=== PATIENT | female | born 1970 | race African-American/Black ===

== ENCOUNTER 2016-05-14 07:46 | Emergency (ER) | payer OTHER ==
[~2016-05-14] VITALS: Ht 167.6 cm; Wt 81.2 kg
[2016-05-14 07:54] VITALS: BP 130/89
[2016-05-14] MEDS ORDERED: PRED20TA PO (08:09)
--- NOTE | 2016-05-14 08:09 | PHYS DOC ---
Past Medical History Past Medical History: No Pertinent History Past Surgical History: , Hysterectomy Alcohol Use: None Drug Use: None Adult General Chief Complaint Chief Complaint: SKIN RASH/ABSCESS [facility] HPI Patient is a 46 year old female presents to the emergency department with a history of two hives on the left side of her neck. Patient states that she has had other episodes of hives on her body that have gone away. She states that the areas go away and symptoms have a scab on the sites. She is concerned that she feels that these may be bed bugs. Patient states that her house is very clean. She states that she does not notice these welts until she comes to work. Patient states that they burn and itch. She denies any drainage coming from the sites. She denies any new clothing new soaps or laundry detergents. 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 Patient denies any shortness of air difficulty breathing. She has not taken any medications to help with the welts with the itching of the discomfort. Review of Systems Review of Systems Constitutional: Denies fever or chills [] Eyes: Denies change in visual acuity, redness, or eye pain [] HENT: Denies nasal congestion or sore throat [] Respiratory: Denies cough or shortness of breath [] Cardiovascular: No additional information not addressed in HPI [] GI: Denies abdominal pain, nausea, vomiting, bloody stools or diarrhea [] : Denies dysuria or hematuria [] Musculoskeletal: Denies back pain or joint pain [] Integument: rash on the left side of neck denies skin lesions [] Neurologic: Denies headache, focal weakness or sensory changes [] Allergies Allergies Allergies Coded Allergies Type Severity Reaction Last Updated Verified No Known Drug Allergies 06/02/14 No Physical Exam Physical Exam Constitutional: Well developed, well nourished, no acute distress, non-toxic appearance. [] HENT: Normocephalic, atraumatic, bilateral external ears normal, oropharynx moist, no oral exudates, nose normal. [] Eyes: PERRLA, EOMI, conjunctiva normal, no discharge. [] Neck: Normal range of motion, no tenderness, supple, no stridor. [] Cardiovascular:Heart rate regular rhythm, no murmur [] Lungs & Thorax: Bilateral breath sounds clear to auscultation [] Skin: Warm, dry, no erythema. Patient with 2 raised areas that appears to be hives noted on the left side of the neck no drainage or discharge noted from the site. Site does not appear to be warm it just appears to be red. Back: No tenderness Extremities: No tenderness, no cyanosis, no clubbing, ROM intact, no edema. [] Neurologic: Alert and oriented X 3, normal motor function, normal sensory function, no focal deficits noted. [] Psychologic: Affect normal, judgement normal, mood normal. [] Current Patient Data Vital Signs Vital Signs Date Time Temp Pulse Resp B/P Pulse Ox O2 Delivery O2 Flow Rate FiO2 05/14/16 07:54 98.1 85 18 96 Room Air 98.1 EKG EKG [] Radiology/Procedures Radiology/Procedures [] Course & Med Decision Making Course & Med Decision Making Pertinent Labs and Imaging studies reviewed. (See chart for details) [] Dragon Disclaimer Dragon Disclaimer This electronic medical record was generated, in whole or in part, using a voice recognition dictation system. Departure Departure Impression: Primary Impression: Contact dermatitis Disposition: HOME, SELF-CARE Condition: STABLE Referrals: NO PCP (PCP) Patient Instructions: Contact Dermatitis, [id number] Additional Instructions: Activity as tolerated Benadryl 25 mg every 6 hours as needed for itching, and irritation. This medication may cause drowsiness do not take if you need to be alert and oriented Medication as prescribed Pepcid 20 mg daily for the next 7 days Keep the areas cool and dry Aveeno baths may also help soothe the skin Followup with your primary care provider in 3-5 days Return to emergency department as needed for signs and symptoms that become worse. Scripts Prednisone 20 Mg [id number] Mg PO DAILY #14 TAB Prov:RUBI BALES NP 05/14/16 RUBI BALES NP May 14, 2016 08:09
[2016-05-14] MEDS ORDERED: PREDNISONE 20 MG TABLET PO ONE (08:15)
== END 2016-05-14 08:16 | disposition home or self-care (01) ==
LOC: ER 07:46
DX: L25.9 Unspecified contact dermatitis, unspecified cause (principal)
CPT/HCPCS: 99283; J7512

== ENCOUNTER 2016-07-26 03:07 | Emergency (ER) | payer OTHER ==
[~2016-07-26] VITALS: Ht 167.6 cm; Wt 74.8 kg
[~2016-07-26 03:07] MED LIST: PRED20TA PO
[2016-07-26 03:21] VITALS: BP 147/103
--- NOTE | 2016-07-26 03:30 | PHYS DOC ---
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 She states the pain radiates from the right posterior portion of her neck across her head and she felt significantly lightheaded and dizzy as well. Upon my initial assessment, the patient is in no acute distress complaining of significant right-sided neck pain and difficulty with rotation of the neck secondary to pain. She denies any numbness or tingling in her extremities. She denies any into her neck pain. She denies any chest pain or shortness of breath. Her pain is all primarily localized to the right side of her neck along the cervical and trapezius area. Review of Systems Review of Systems Constitutional: Denies fever or chills [] Eyes: Denies change in visual acuity, redness, or eye pain [] HENT: Denies nasal congestion or sore throat [] Respiratory: Denies cough or shortness of breath [] Cardiovascular: No additional information not addressed in HPI [] GI: Denies abdominal pain, nausea, vomiting, bloody stools or diarrhea [] : Denies dysuria or hematuria [] Musculoskeletal: Denies back pain or joint pain [] Integument: Denies rash or skin lesions [] Neurologic: Denies headache, focal weakness or sensory changes [] Endocrine: Denies polyuria or polydipsia [] Current Medications Current Medications Current Medications Medications (Trade) Dose Ordered Sig/Luis Start Time Stop Time Status Last Admin Dose Admin Ketorolac Tromethamine (Toradol Im) 60 mg STK-MED ONCE 07/26/16 03:35 07/26/16 03:36 DC Orphenadrine Citrate (Norflex) 60 mg STK-MED ONCE 07/26/16 03:35 07/26/16 03:36 DC Allergies Allergies Allergies Coded Allergies Type Severity Reaction Last Updated Verified No Known Drug Allergies 07/26/16 No Physical Exam Physical Exam Constitutional: Well developed, well nourished, no acute distress, non-toxic appearance. [] HENT: Normocephalic, atraumatic, bilateral external ears normal, oropharynx moist, no oral exudates, nose normal. [] Eyes: PERRLA, EOMI, conjunctiva normal, no discharge. [] Neck: Decreased ROM in the neck secondary to pain, significant right sided paracervical and trapezius pain to palpation, no palpable deformity, supple, no stridor. [] Cardiovascular:Heart rate regular rhythm, no murmur [] Lungs & Thorax: Bilateral breath sounds clear to auscultation [] Abdomen: Bowel sounds normal, soft, no tenderness, no masses, no pulsatile masses. [] Skin: Warm, dry, no erythema, no rash. [] Back: No tenderness, no CVA tenderness. [] Extremities: No tenderness, no cyanosis, no clubbing, ROM intact, no edema. [] Neurologic: Alert and oriented X 3, normal motor function, normal sensory function, no focal deficits noted. [] Psychologic: Affect normal, judgement normal, mood normal. [] Current Patient Data Vital Signs Vital Signs Date Time Temp Pulse Resp B/P (MAP) Pulse Ox O2 Delivery O2 Flow Rate FiO2 07/26/16 03:21 98.1 96 20 96 Room Air 98.1 EKG EKG [] Radiology/Procedures Radiology/Procedures [] Course & Med Decision Making Course & Med Decision Making Pertinent Labs and Imaging studies reviewed. (See chart for details) This 46-year-old female who had a injury to the right side of her neck while she was in the process of lifting a patient will receive IM injections of Toradol and Norflex. Her symptoms seem likely related to cervical strain and she will need to be on light duty for the next several days and to avoid any strenuous activities. I counseled her that she is continue to use heat therapy and anti-inflammatories and muscle relaxants as needed for her symptoms. She is to follow closely with her primary care doctor in the next several days for symptom resolution and to return if her symptoms should worsen in any way. Upon my reassessment, after Toradol and Norflex injection the patient feels symptomatically improved. I'll be discharging her with a course of Motrin and Norflex and give her the next several days to relax and to avoid any strenuous activities. Patient is very agreeable with this plan and will be discharged without incident. Return precautions were provided and acknowledged by the patient. Dragon Disclaimer Dragon Disclaimer This electronic medical record was generated, in whole or in part, using a voice recognition dictation system. Departure Departure Impression: Primary Impression: Cervical strain, acute Disposition: 01 HOME, SELF-CARE Admitting Physician: Other Condition: IMPROVED Referrals: NO PCP (PCP) Patient Instructions: Cervical Sprain, [id number] Additional Instructions: Please follow up with your primary doctor in the next 2-3 days for your neck strain. Take your medications as prescribed. Return to the ER if you develop any worsening of your symptoms. Avoid any strenuous activities and use heat therapy to the affected area as needed. Scripts Ibuprofen (IBUPROFEN) 800 Mg Tablet 800 MG PO PRN Q6HRS Y for INFLAMMATION, #20 TAB Prov: SONG DE LA TORRE DO 07/26/16 Cyclobenzaprine Hcl (CYCLOBENZAPRINE HCL) 10 Mg Tablet 10 MG PO TID, #15 TAB Prov: SONG DE LA TORRE DO 07/26/16 SONG DE LA TORRE DO July 26, 2016 03:30
[2016-07-26] MEDS ORDERED: ORPHENADRINE CITRATE 60 MG/2 ML VIAL. ONE (03:35)
[2016-07-26] MEDS ORDERED: KETOROLAC TROMETHAMINE 60 MG/2 ML INJ. ONE (03:35)
[2016-07-26] MEDS ORDERED: CYCL10TA2 PO (03:59)
[2016-07-26] MEDS ORDERED: IBUP-1060 PO (03:59)
[2016-07-26] MEDS ORDERED: KETOROLAC TROMETHAMINE 60 MG/2 ML INJ. IM ONE (04:00)
[2016-07-26] MEDS ORDERED: ORPHENADRINE CITRATE 60 MG/2 ML VIAL. IM ONE (04:00)
== END 2016-07-26 04:34 | disposition home or self-care (01) ==
LOC: EDBD → ER 03:07 → MERGE 03:07 → ER 04:34
DX: S16.1XXA Strain of muscle, fascia and tendon at neck level, initial encounter (principal); W19.XXXA Unspecified fall, initial encounter; Y93.89 Activity, other specified; Y92.89 Other specified places as the place of occurrence of the external cause; Y99.0 Civilian activity done for income or pay
CPT/HCPCS: 96372; 99284; J1885; J2360

== ENCOUNTER → 2016-08-26 | Outpatient (CLI) | payer OTHER ==
[~2016-08-26] MED LIST changes: +CYCL10TA2 PO; +IBUP-1060 PO
--- NOTE | 2016-08-26 10:03 | RAD ---
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 Comparison: None Findings: There is motion degradation, some image sequences repeated. There is mild reversal of the lordotic curvature. Cervical cord caliber is within normal limits without obvious or expansile signal change, limited evaluation for subtle signal change due to motion. There is moderate degenerative disc disease C6-7, to lesser degree C4-5 and minimally C5-C6. Cervical vertebral body stature is preserved. There is negligible posterior subluxation C6 relative to C7. There is no significant abnormality of the cervical medullary junction. There is nonspecific prominence of the adenoids. Very mild endplate edema at C4-5 and C6-7 is likely reactive/degenerative in etiology. Incidental note is made of medial deviation of the right carotid artery neck in the neck into the retropharyngeal region. C2-C3: Neural foramina and spinal canal are adequate. C3-C4: Neural foramina and spinal canal are adequate. C4-C5: Neural foramina and spinal canal are adequate. C5-C6: Spinal canal and neural foramina are adequate. C6-C7: There is minimal disc osteophyte complex and bulge. Spinal canal is adequate. There is uncovertebral degenerative change. There is likely mild neural foramina compromise bilaterally somewhat greater on the left. C7-T1: Neural foramina and spinal canal are adequate. Impression: 1. There is degenerative disc disease greatest at C6-7 and C4-5. There is no significant cervical spinal stenosis. There is likely mild neural foramina compromise bilaterally at C6-7. There is nonspecific reversal of the lordotic curvature, minimal posterior subluxation C6 relative to C7. 2. Incidental note is made of medial deviation of the right carotid artery in the neck into the retropharyngeal region. Electronically signed by: Efra Young MD (08/26/2016 10:00 AM)
== END | disposition home or self-care (01) ==
LOC: MRI 12:05
PROVIDERS: ATTEND Family Medicine
DX: S16.1XXA Strain of muscle, fascia and tendon at neck level, initial encounter (principal); M50.323 Other cervical disc degeneration at C6-C7 level; M50.321 Other cervical disc degeneration at C4-C5 level; X58.XXXA Exposure to other specified factors, initial encounter; Y93.89 Activity, other specified; Y92.89 Other specified places as the place of occurrence of the external cause; Y99.8 Other external cause status
CPT/HCPCS: 72141

== ENCOUNTER 2017-04-22 07:13 | Emergency (ER) | payer SELFPAY, OTHER | END 2017-04-22 07:58 | disposition home or self-care (01) | LOC: ER 07:13 | DX: L03.113 Cellulitis of right upper limb (principal) | CPT/HCPCS: 99283 ==

== ENCOUNTER → 2017-07-25 | Outpatient (CLI) | payer OTHER | END | disposition home or self-care (01) | LOC: MAMMO 08:17 | DX: Z12.31 Encounter for screening mammogram for malignant neoplasm of breast (principal) | CPT/HCPCS: 77063; 77067 ==

== ENCOUNTER 2017-08-22 11:33 | Emergency (ER) | payer OTHER | END 2017-08-22 12:46 | disposition home or self-care (01) | LOC: ER 11:33 | DX: H10.33 Unspecified acute conjunctivitis, bilateral (principal); R03.0 Elevated blood-pressure reading, without diagnosis of hypertension | CPT/HCPCS: 99283 ==

== ENCOUNTER 2018-05-25 14:00 | Emergency (ER) | payer SELFPAY ==
[~2018-05-25] VITALS: Ht 167.6 cm; Wt 99.8 kg
[~2018-05-25 14:00] MED LIST changes: +CEPH-264 PO; +HYDR25TA PO; +SULF1TAB24 PO; +TOBR5DRO6 OD
[2018-05-25 14:49] VITALS: BP 143/97
[2018-05-25] MEDS ORDERED: POLY10DR3 EACHEYE (16:03)
--- NOTE | 2018-05-25 16:04 | PHYS DOC ---
Past Medical History Past Medical History: No Pertinent History Past Surgical History: No Surgical History Alcohol Use: None Drug Use: None Adult General Chief Complaint Chief Complaint: EYE PROBLEMS HPI HPI Patient is a 48 year old female who presents with 4 days of left eye itching and discharge and now the right eye is beginning to become pink and itching with discharge. Review of Systems Review of Systems Constitutional: Denies fever or chills [] Eyes: Denies change in visual acuity, redness, or eye pain. Left and right eye itching and discharge. [] HENT: Denies nasal congestion or sore throat [] Respiratory: Denies cough or shortness of breath [] Cardiovascular: No additional information not addressed in HPI [] GI: Denies abdominal pain, nausea, vomiting, bloody stools or diarrhea [] : Denies dysuria or hematuria [] Musculoskeletal: Denies back pain or joint pain [] Integument: Denies rash or skin lesions [] Neurologic: Denies headache, focal weakness or sensory changes [] All other systems were reviewed and found to be within normal limits, except as documented in this note. Allergies Allergies Allergies Coded Allergies Type Severity Reaction Last Updated Verified No Known Drug Allergies 06/02/14 No Physical Exam Physical Exam Constitutional: Well developed, well nourished, no acute distress, non-toxic appearance. [] HENT: Normocephalic, atraumatic, bilateral external ears normal, oropharynx moist, no oral exudates, nose normal. Left right eye clear discharge and pink conjunctiva. [] Eyes: PERRLA, EOMI, conjunctiva normal, no discharge. [] Neck: Normal range of motion, no tenderness, supple, no stridor. [] Cardiovascular:Heart rate regular rhythm, no murmur [] Lungs & Thorax: Bilateral breath sounds clear to auscultation [] Abdomen: Bowel sounds normal, soft, no tenderness, no masses, no pulsatile masses. [] Skin: Warm, dry, no erythema, no rash. [] Back: No tenderness, no CVA tenderness. [] Extremities: No tenderness, no cyanosis, no clubbing, ROM intact, no edema. [] Neurologic: Alert and oriented X 3, normal motor function, normal sensory function, no focal deficits noted. [] Psychologic: Affect normal, judgement normal, mood normal. [] Current Patient Data Vital Signs Vital Signs Date Time Temp Pulse Resp B/P (MAP) Pulse Ox O2 Delivery O2 Flow Rate FiO2 05/25/18 14:49 97.9 89 18 143/97 (112) 99 Room Air 97.9 EKG EKG [] Radiology/Procedures Radiology/Procedures [] Course & Med Decision Making Course & Med Decision Making Patient is a 48 year old female who presents with 4 days of left eye itching and discharge and now the right eye is beginning to become pink and itching with discharge. Alert and oriented. Speaks in full clear sentences. Afebrile. Left and right I have pink conjunctivae a with clear discharge. There is no swelling around the eye. Patient denies any visual changes, headache, dizziness , pain of the eye. PERRLA. No extraocular movement pain. She is diagnosed with Spencer Vitas. Patient will be given antibiotic eyedrops and to follow-up with her primary care provider. Dragon Disclaimer Dragon Disclaimer This electronic medical record was generated, in whole or in part, using a voice recognition dictation system. Departure Departure Impression: Primary Impression: Bilateral conjunctivitis Disposition: HOME, SELF-CARE Condition: STABLE Referrals: SONIA ZULETA APRN (PCP) Patient Instructions: Bacterial Conjunctivitis Additional Instructions: Follow-up with primary care provider if needed. Scripts Polymyxin B Sulf/Trimethoprim (POLYMYXIN B-TMP EYE DROPS) 10 Ml Drops 1 DROP EACHEYE QID for 10 Days, #10 ML Prov: RUBI WAGNER APRN 05/25/18 Problem Qualifiers Primary Impression: Bilateral conjunctivitis Conjunctivitis type: unspecified Qualified Codes: H10.9 - Unspecified conjunctivitis RUBI WAGNER APRN May 25, 2018 16:04
== END 2018-05-25 16:14 | disposition home or self-care (01) ==
LOC: ER 14:00
DX: H10.89 Other conjunctivitis (principal)
CPT/HCPCS: 99283

== ENCOUNTER 2018-09-03 20:14 | Emergency (ER) | payer SELFPAY ==
[~2018-09-03] VITALS: Ht 167.6 cm; Wt 84.8 kg
[~2018-09-03 20:14] MED LIST changes: +POLY10DR3 EACHEYE
[2018-09-03 20:57] VITALS: BP 142/92
[2018-09-03] MEDS ORDERED: AMOX500C PO (21:41)
--- NOTE | 2018-09-03 21:44 | PHYS DOC ---
Past Medical History Past Medical History: No Pertinent History Past Surgical History: No Surgical History Alcohol Use: None Drug Use: None Adult General Chief Complaint Chief Complaint: INSECT BITE [facility] HPI Patient is a 48 year old female who presents with an insect bites to the right arm. Patient states this is been ongoing for a day and that she woke up with it. Areas itch rates her pain 0 out of 10. Review of Systems Review of Systems Constitutional: Denies fever or chills [] Eyes: Denies change in visual acuity, redness, or eye pain [] HENT: Denies nasal congestion or sore throat [] Respiratory: Denies cough or shortness of breath [] Cardiovascular: No additional information not addressed in HPI [] GI: Denies abdominal pain, nausea, vomiting, bloody stools or diarrhea [] : Denies dysuria or hematuria [] Musculoskeletal: Denies back pain or joint pain [] Integument: Reports insect bites to Right arm and right thigh. Neurologic: Denies headache, focal weakness or sensory changes [] Endocrine: Denies polyuria or polydipsia [] Complete systems were reviewed and found to be within normal limits, except as documented in this note. Allergies Allergies Allergies Coded Allergies Type Severity Reaction Last Updated Verified No Known Drug Allergies 06/02/14 No Physical Exam Physical Exam Constitutional: Well developed, well nourished, no acute distress, non-toxic appearance. [] HENT: Normocephalic, atraumatic, bilateral external ears normal, oropharynx moist, no oral exudates, nose normal. [] Eyes: PERRLA, EOMI, conjunctiva normal, no discharge. [] Neck: Normal range of motion, no tenderness, supple, no stridor. [] Cardiovascular:Heart rate regular rhythm, no murmur [] Lungs & Thorax: Bilateral breath sounds clear to auscultation [] Abdomen: Bowel sounds normal, soft, no tenderness, no masses, no pulsatile masses. [] Skin: Warm, dry, erythema to R forearm around 2 bites. Also has erythema to R thigh around bite. Back: No tenderness, no CVA tenderness. [] Extremities: No tenderness, no cyanosis, no clubbing, ROM intact, no edema. [] Neurologic: Alert and oriented X 3, normal motor function, normal sensory function, no focal deficits noted. [] Psychologic: Affect normal, judgement normal, mood normal. [] EKG EKG [] Radiology/Procedures Radiology/Procedures [] Course & Med Decision Making Course & Med Decision Making Pertinent Labs and Imaging studies reviewed. 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 Will have her take Benadryl to see if improves. If not will have her take antibiotic. Patient is agreeable to plan. Dragon Disclaimer Dragon Disclaimer This electronic medical record was generated, in whole or in part, using a voice recognition dictation system. Departure Departure Impression: Primary Impression: Insect bite Additional Impression: Papular urticaria Disposition: HOME, SELF-CARE Condition: STABLE Referrals: SONIA ZULETA APRN (PCP) Patient Instructions: Insect Bite, [id number] Additional Instructions: Thank you for visiting [facility]. We appreciate you trusting us with your care. If any additional problems come up don't hesitate to return to visit us. Please follow up with your primary care provider so they can plan additional care if needed and know about the problem that you had. If symptoms worsen come back to the Emergency Department. Any concerning symptoms that start such as chest pain, shortness of Air, weakness or numbness on one side of the body, running high fevers or any other concerning symptoms return to the ER. Please fill your medications at any pharmacy and follow the prescription instructions. 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 If it does not improve with Benadryl, please take antibiotic as prescribed. Scripts Amoxicillin (AMOXICILLIN) 500 Mg Capsule 1 CAP PO TID for 7 Days, #21 CAP Prov: GLENDA ACKERMAN APRN 09/03/18 Problem Qualifiers Primary Impression: Insect bite Encounter type: initial encounter Site of insect bite: unspecified site Qualified Codes: W57.XXXA - Bitten or stung by nonvenomous insect and other nonvenomous arthropods, initial encounter GLENDA ACKERMAN APRN Sep 03, 2018 21:44
== END 2018-09-03 21:50 | disposition home or self-care (01) ==
LOC: ER 20:14
DX: S40.861A Insect bite (nonvenomous) of right upper arm, initial encounter (principal); S70.361A Insect bite (nonvenomous), right thigh, initial encounter; L50.8 Other urticaria; W57.XXXA Bitten or stung by nonvenomous insect and other nonvenomous arthropods, initial encounter; Y93.89 Activity, other specified; Y92.89 Other specified places as the place of occurrence of the external cause; Y99.8 Other external cause status
CPT/HCPCS: 99283

== ENCOUNTER 2019-11-15 11:01 | Emergency (ER) | payer BC ==
[~2019-11-15] VITALS: Ht 167.6 cm; Wt 97.0 kg
[~2019-11-15 11:01] MED LIST changes: +AMOX500C PO
[2019-11-15 11:52] VITALS: BP 128/74
[2019-11-15] MEDS ORDERED: NAPROXEN 500 MG TABLET PO STA (12:07)
[2019-11-15] MEDS ORDERED: HYDROcodone/APAP 5/325MG 1 TAB TABLET PO ONE (12:30)
--- NOTE | 2019-11-15 12:30 | RAD ---
KNEE RIGHT 3V 11/15/2019 11:11 AM INDICATION: Status post fall downstairs COMPARISON: None available. TECHNIQUE: 3 views of the right knee are provided. FINDINGS/ IMPRESSION: No significant knee joint effusion . There is no acute fracture or dislocation. Joint spaces are maintained. Bone mineralization is within normal limits. Regional soft tissues are within normal limits. There is no soft tissue gas or osseous erosion. No radiopaque foreign body. Electronically signed by: Marely Riojas MD (11/15/2019 12:27 PM) [id number]
--- NOTE | 2019-11-15 13:09 | PHYS DOC ---
Past Medical History Past Medical History: No Pertinent History (JAIRO SAUNDERS APRN) Past Surgical History: Tubal ligation (JAIRO SAUNDERS APRN) Smoking Status: Never Smoker Alcohol Use: Rarely Drug Use: None (JAIRO SAUNDERS APRN) General Adult EDM: Chief Complaint: LOWEREXTREMITY INJURY HPI: HPI: Patient is a 49 year old female who presents the ED today complaining of mild intermittent right knee pain that began today after she fell down 4 steps twisting her knee. Patient describes the pain as sharp and constant. States the pain is worse on weightbearing. Denies anything specifically relieving her pain. Requesting MRI. (JAIRO SAUNDERS APRN) Review of Systems: Review of Systems: Constitutional: Denies fever or chills. [] Musculoskeletal: Reports right knee pain Integument: Denies rash. [] Neurologic: Denies headache, focal weakness or sensory changes. [] Psychiatric: Denies depression or anxiety. [] (JAIRO SAUNDERS APRN) Heart Score: Risk Factors: Risk Factors: DM, Current or recent (<one month) smoker, HTN, HLP, family history of CAD, obesity. Risk Scores: Score 0 - 3: 2.5% MACE over next 6 weeks - Discharge Home Score 4 - 6: 20.3% MACE over next 6 weeks - Admit for Clinical Observation Score 7 - 10: 72.7% MACE over next 6 weeks - Early Invasive Strategies (JAIRO SAUNDERS APRN) Current Medications: Current Medications Medications (Trade) Dose Ordered Sig/Luis Start Time Stop Time Status Last Admin Dose Admin Acetaminophen/ Hydrocodone Bitart (Lortab 5/325) 1 tab 1X ONCE 11/15/19 12:30 11/15/19 12:31 DC 11/15/19 12:28 1 TAB Naproxen (Naprosyn) 500 mg 1X STAT 11/15/19 12:07 11/15/19 12:13 DC 11/15/19 12:29 500 MG (JAIRO SAUNDERS APRN) Allergies: Allergies: Allergies Coded Allergies Type Severity Reaction Last Updated Verified No Known Drug Allergies 06/02/14 No (JAIRO SAUNDERS APRN) Physical Exam: PE: Constitutional: Well developed, well nourished, no acute distress, non-toxic appearance. [] Skin: Warm, dry, no erythema, no rash. [] Back: No tenderness, no CVA tenderness. [] Extremities: Right knee with no obvious deformity. Tenderness on palpation of posterior knee. Full range of motion specifically passive range of motion to the right knee, negative Geovany sign, negative Nahomi sign, negative anterior posterior drawer sign. +2 right pedal pulse. Neurologic: Alert and oriented X 3, normal motor function, normal sensory function, no focal deficits noted. [] Psychologic: Affect normal, judgement normal, mood normal. [] (JAIRO SAUNDERS APRN) EKG: EKG: [] (JAIRO SAUNDERS APRN) Radiology/Procedures: Radiology/Procedures: [] (JAIRO SAUNDERS APRN) Course & Med Decision Making: Course & Med Decision Making Pertinent Labs and Imaging studies reviewed. (See chart for details) This is a 49-year-old female patient presenting to the ED today with right knee pain that began after she fell down some steps. Right knee x-rays interpreted by radiologist are negative for any acute findings. Immobilizer applied to the right knee by the commercial hvac service technician, neurovascular exam is intact. Ice elevation encouraged. Follow-up with orthopedic doctor in 1 week. (JAIRO SAUNDERS APRN) Dragon Disclaimer: Dragon Disclaimer: This electronic medical record was generated, in whole or in part, using a voice recognition dictation system. (JAIRO SAUNDERS APRN) Departure Departure Impression: Primary Impression: Fall down steps Qualified Codes: W10.8XXA - Fall (on) (from) other stairs and steps, initial encounter Additional Impression: Right knee sprain Qualified Codes: S83.91XA - Sprain of unspecified site of right knee, initial encounter Disposition: 01 HOME, SELF-CARE Condition: STABLE Referrals: NO PCP (PCP) DOMINGUEZ MELTON MD follow up in 1-2 weeks Patient Instructions: Knee Sprain, [id number] Additional Instructions: You were evaluated in the emergency room for right knee pain, your right knee x- rays are negative for any acute findings. Try to ice and elevate the extremity, wear the provided immobilizer as tolerated. Follow-up with the provided orthopedic doctor in 1 week, you can take [id number] pain relievers as needed Justicifation of Admission Dx: Justifications for Admission: Justification of Admission Dx: N/A (JAIRO SAUNDERS APRN) Attending Signature Attending Signature I have reviewed the PA/DISTRIBUTION SYSTEM OPERATOR's note and plan of care. I was available for cons ultation as needed during the patient's visit in the emergency department. I agree with the clinical impression, plan, and disposition. (GLENDA RODRÍGUEZ DO) JAIRO SAUNDERS APRN Nov 15, 2019 13:09 GLENDA RODRÍGUEZ DO Nov 15, 2019 14:00
== END 2019-11-15 13:37 | disposition home or self-care (01) ==
LOC: ER 11:01
DX: S83.8X1A Sprain of other specified parts of right knee, initial encounter (principal); Z98.51 Tubal ligation status; W10.8XXA Fall (on) (from) other stairs and steps, initial encounter; Y93.89 Activity, other specified; Y92.89 Other specified places as the place of occurrence of the external cause; Y99.8 Other external cause status
CPT/HCPCS: 29505; 73562; 99283

== ENCOUNTER → 2019-11-26 | Outpatient (CLI) | payer BC ==
[2019-11-15 11:52] VITALS: BP 128/74
--- NOTE | 2019-11-26 13:13 | KCIC ---
STUDY: MRI of the right knee without contrast INDICATION: Right knee pain. Recent fall. Swelling. COMPARISON: 11/15/2019 radiographs TECHNIQUE: Multiplanar MR imaging of the right knee performed without the use of intravenous or intra-articular contrast. FINDINGS: Menisci: Irregular signal and morphology at the periphery of the lateral meniscus posterior body/horn junction, images 11 and 12 series 8, suspicious for injury to the meniscus at fascicular attachments. No discrete tear of the medial meniscus. Cruciate ligaments: Fully disrupted ACL. The PCL is intact. Collateral ligaments: At least high grade but suspected full-thickness tear of the superficial MCL near its femoral attachment. Fully torn meniscofemoral ligament, image 12 series 8. The meniscotibial ligament appears intact. Extensive edema/hemorrhage at the posterolateral corner though the fibular collateral ligament and biceps femoris remain intact. A few of the smaller components of the lateral collateral ligament complex remain visualized but others are not well delineated. Tendons: No acute tendon disruption. Cartilage: Patellofemoral: Localized high-grade chondrosis at the upper patellar median ridge with subchondral edema/cystic change. Lateral compartment: No high-grade or full-thickness chondral defect. Medial compartment: No high-grade or full-thickness chondral defect. Bones: Kissing contusions in a pattern typical of pivot shift injury at the lateral compartment and there is also an impaction fracture at the far posterior lateral tibial plateau, image 22 series 4. Faint marrow edema at the far peripheral aspect of the medial compartment. Mild edema at the proximal fibula without an avulsion fracture. Miscellaneous: Moderate to large knee joint effusion. Soleus more so than popliteus muscle belly edema most compatible with strain injury given background findings at the posterolateral corner. Faint muscular edema at a few additional locations such as the proximal lateral gastrocnemius. Scattered subcutaneous and popliteal fossa edema. IMPRESSION: 1. Fully torn ACL. Intact PCL. 2. No large tear of either meniscus however there is likely injury at the periphery of the lateral meniscus posterior body/horn junction at fascicular attachment sites (images 11 and 12 series 8). 3. At least high-grade but favored fall thickness tearing of the superficial MCL near its femoral attachment. The meniscofemoral component of the deep MCL is fully torn. 4. Posterolateral corner injury with extensive edema/hemorrhage in this region however without disruption of the fibular collateral ligament or biceps femoris.Though the smaller components of the posterolateral corner are difficult to delineate due to the degree of inflammation, it is suspected that the lateral limb of the arcuate ligament and popliteofibular ligament are at least partially torn. No fibular avulsion. 5. Pivot-shift contusion pattern with an associated impaction fracture at the far posterior lateral tibial plateau. No displaced chondral fragment. 6. Localized high-grade chondrosis at the patellar median ridge. 7. Additional sequela of trauma as outlined in the body the report. Electronically signed by: GEOVANY CHING MD (11/26/2019 1:11 PM) [id number]
== END | disposition home or self-care (01) ==
LOC: KCIC MRI 09:16
PROVIDERS: ATTEND Orthopaedic Surgery
DX: S83.511A Sprain of anterior cruciate ligament of right knee, initial encounter (principal); X58.XXXA Exposure to other specified factors, initial encounter; Y93.89 Activity, other specified; Y92.89 Other specified places as the place of occurrence of the external cause; Y99.8 Other external cause status
CPT/HCPCS: 73721

== ENCOUNTER 2020-11-29 08:12 | Emergency (ER) | payer BC, OTHER ==
[~2020-11-29] VITALS: Ht 165.1 cm; Wt 104.0 kg
--- NOTE | 2020-11-29 08:34 | PHYS DOC ---
Past Medical History Past Medical History: No Pertinent History Past Surgical History: No Surgical History Smoking Status: Never Smoker Alcohol Use: Rarely Drug Use: None General Adult EDM: Chief Complaint: Finger infection HPI: HPI: Patient is a 50 year old male who present to ER for evaluation of right thumb swelling and pain around the nail bed area for the last 4 days. Patient denies any injury. Patient denies any fever. Patient is up-to-date on her tetanus status. Review of Systems: Review of Systems: Constitutional: Denies fever or chills. [] Eyes: Denies change in visual acuity. [] HENT: Denies nasal congestion or sore throat. [] Respiratory: Denies cough or shortness of breath. [] Cardiovascular: Denies chest pain or edema. [] GI: Denies abdominal pain, nausea, vomiting, bloody stools or diarrhea. [] : Denies dysuria. [] Musculoskeletal: Denies back pain or joint pain. [] Integument: positive for right thumb infection at the around the nail bed area. Neurologic: Denies headache, focal weakness or sensory changes. [] Endocrine: Denies polyuria or polydipsia. [] Lymphatic: Denies swollen glands. [] Psychiatric: Denies depression or anxiety. [] Heart Score: C/O Chest Pain: N/A Risk Factors: Risk Factors: DM, Current or recent (<one month) smoker, HTN, HLP, family history of CAD, obesity. Risk Scores: Score 0 - 3: 2.5% MACE over next 6 weeks - Discharge Home Score 4 - 6: 20.3% MACE over next 6 weeks - Admit for Clinical Observation Score 7 - 10: 72.7% MACE over next 6 weeks - Early Invasive Strategies Allergies: Allergies: Allergies Coded Allergies Type Severity Reaction Last Updated Verified No Known Drug Allergies 11/29/20 No Physical Exam: PE: Constitutional: Well developed, well nourished, no acute distress, non-toxic appearance. [] HENT: Normocephalic, atraumatic, bilateral external ears normal, oropharynx moist, no oral exudates, nose normal. [] Eyes: PERRLA, EOMI, conjunctiva normal, no discharge. [] Neck: Normal range of motion, no tenderness, supple, no stridor. [] Cardiovascular:Heart rate regular rhythm, no murmur [] Lungs & Thorax: Bilateral breath sounds clear to auscultation [] Abdomen: Bowel sounds normal, soft, no tenderness, no masses, no pulsatile masses. [] Skin: Warm, dry, no erythema, no rash. [] Back: No tenderness, no CVA tenderness. [] Extremities: right thumb around the edge of the nailbed area is swollen and tender with erythema Neurologic: Alert and oriented X 3, normal motor function, normal sensory function, no focal deficits noted. [] Psychologic: Affect normal, judgement normal, mood normal. [] Current Patient Data: Vital Signs: Vital Signs Date Time Temp Pulse Resp B/P (MAP) Pulse Ox O2 Delivery O2 Flow Rate FiO2 11/29/20 08:23 98.2 90 18 140/95 (110) 98 Room Air 98.2 EKG: EKG: [] Radiology/Procedures: Radiology/Procedures: Indication: abscess Procedure: The patient was positioned appropriately. Local anesthesia was used, 6 ml of .5 % marcaine was injected at the lateral side at the base of right thumb, digital block. An incision was then made along the ulnar side of the nailbed of right thumb using the tip of scapel, small amount of purulent material was expressed The patient tolerated the procedure well. Complications: none. Course & Med Decision Making: Course & Med Decision Making Pertinent Labs and Imaging studies reviewed. (See chart for details) Patient is a 50-year-old female who present to ER for evaluation of right thumb swelling consistent with paronychia. An I&D was performed, patient was discharged home with Bactrim and Keflex combination. Patient was recommended to follow-up with her doctor in 2 days for reevaluation. Patient was amenable to plan of care Juan Disclaimer: Juan Disclaimer: This electronic medical record was generated, in whole or in part, using a voice recognition dictation system. Departure Departure Impression: Primary Impression: Paronychia of right thumb Disposition: 01 HOME / SELF CARE / HOMELESS Condition: STABLE Referrals: NO PCP (PCP) Follow up with your doctor in 2 days for wound rechecked. Patient Instructions: Paronychia Additional Instructions: Thank you for visiting our Emergency Department. We appreciate you trusting us with your care. If any additional problems come up don't hesitate to return to visit us. Please follow up with your primary care provider so they can plan additional care if needed and know about the problem that you had. If symptoms worsen come back to the Emergency Department. Any concerning symptoms that start such as chest pain, shortness of air, weakness or numbness on one side of the body, running high fevers or any other concerning symptoms return to the ER. Scripts Cephalexin (CEPHALEXIN) 500 Mg Tablet 1 TAB PO QID for 7 Days, #28 TAB Prov: HAROON ZHENG DO 11/29/20 Sulfamethoxazole/Trimethoprim (BACTRIM DS TABLET) 1 Each Tablet 1 TAB PO BID for 7 Days, #14 TAB 0 Refills Prov: HAROON ZHENG DO 11/29/20 HAROON ZHENG DO Nov 29, 2020 08:34
[2020-11-29] MEDS ORDERED: BUPIVACAINE MPF 0.5% 30 ML VIAL. INJ ONE (09:00)
[2020-11-29] MEDS ORDERED: CEPH500T PO (09:39)
[2020-11-29] MEDS ORDERED: SULF1TAB24 PO (09:39)
== END 2020-11-29 09:46 | disposition home or self-care (01) ==
LOC: ER 08:12
DX: L03.011 Cellulitis of right finger (principal)
CPT/HCPCS: 10060; 99283; J3490